=== PATIENT | male | born 1995 | race Caucasian/White ===

== ENCOUNTER 2016-10-23 14:33 | Emergency (ER) | payer OTHER ==
[~2016-10-23] VITALS: Ht 175.3 cm; Wt 61.3 kg
[2016-10-23 14:36] VITALS: BP 121/65
== END 2016-10-23 15:48 | disposition home or self-care (01) ==
LOC: ED 15:42
DX: S52.222A Displaced transverse fracture of shaft of left ulna, initial encounter for closed fracture (principal); V19.9XXA Pedal cyclist (driver) (passenger) injured in unspecified traffic accident, initial encounter; Y93.55 Activity, bike riding; Y99.8 Other external cause status; Y92.89 Other specified places as the place of occurrence of the external cause
CPT/HCPCS: 29125